=== PATIENT | male | born 1985 | race Caucasian/White ===

== ENCOUNTER → 2017-04-01 | Outpatient (CLI) | payer OTHER ==
[~2017-04-01] VITALS: Ht 172.7 cm; Wt 84.4 kg
[2017-04-01 16:09] VITALS: BP 121/76; PULSE 64; Ht 172.7 cm; Wt 84.4 kg
== END | disposition home or self-care (01) ==
LOC: C.NEUR 14:15
PROVIDERS: ATTEND Internal Medicine Pulmonary Disease
DX: G47.00 Insomnia, unspecified (principal); G47.21 Circadian rhythm sleep disorder, delayed sleep phase type; G47.50 Parasomnia, unspecified